=== PATIENT | female | born 1985 | race Caucasian/White ===

== ENCOUNTER → 2017-08-12 | Outpatient (REF) | payer OTHER ==
[2017-08-15 00:07] LABS: HPV HYBRID CAPTURE II Negative (Negative)
== END ==
LOC: M SFHCWAGY 15:58
DX: Z12.4 Encounter for screening for malignant neoplasm of cervix (principal)

== ENCOUNTER → 2018-11-03 | Outpatient (REF) | payer OTHER | LOC: M SFHCWAGY 16:04 | PROVIDERS: ATTEND Nurse Practitioner Family | DX: Z12.4 Encounter for screening for malignant neoplasm of cervix (principal) ==

== ENCOUNTER → 2019-06-21 | Outpatient (REF) | payer OTHER | LOC: M LAB REF 14:45 | PROVIDERS: ATTEND Physician Assistant | DX: J02.9 Acute pharyngitis, unspecified (principal) ==

== ENCOUNTER → 2020-05-09 | Outpatient (CLI) | payer OTHER | LOC: M WUC 13:54 | PROVIDERS: ATTEND Nurse Practitioner Family | DX: J30.1 Allergic rhinitis due to pollen (principal); J30.81 Allergic rhinitis due to animal (cat) (dog) hair and dander ==

== ENCOUNTER → 2020-11-14 | Outpatient (REF) | payer OTHER | LOC: M SFHCWAGY 18:58 | PROVIDERS: ATTEND Nurse Practitioner Women's Health | DX: Z12.4 Encounter for screening for malignant neoplasm of cervix (principal) ==

== ENCOUNTER → 2022-03-03 | Outpatient (REF) | payer OTHER | LOC: M SFHCWAGY 10:27 | PROVIDERS: ATTEND Obstetrics & Gynecology | DX: Z12.4 Encounter for screening for malignant neoplasm of cervix (principal) | CPT/HCPCS: 87624; G0123 ==

== ENCOUNTER → 2022-05-23 | Outpatient (CLI) | payer OTHER ==
[2022-05-23 16:51] LABS: COMPLEMENT C3 112.5 MG/DL (84.0-160.0); COMPLEMENT C4 16.6 MG/DL (12-36); IMMUNOGLOBULIN M 96.1 MG/DL (50-300)
[2022-05-23 16:54] LABS: IMMUNOGLOBULIN E 382.7 IU/ML (0-378)
== END ==
LOC: M WUC 11:56
PROVIDERS: ATTEND Nurse Practitioner Family
DX: J30.1 Allergic rhinitis due to pollen (principal); J30.81 Allergic rhinitis due to animal (cat) (dog) hair and dander; J30.89 Other allergic rhinitis; H10.45 Other chronic allergic conjunctivitis; J45.20 Mild intermittent asthma, uncomplicated

== ENCOUNTER → 2023-04-29 | Outpatient (REF) | payer OTHER | LOC: M SFHCWAGY 13:17 | PROVIDERS: ATTEND Obstetrics & Gynecology | DX: Z12.4 Encounter for screening for malignant neoplasm of cervix (principal) | CPT/HCPCS: 87624; G0123 ==

== ENCOUNTER → 2024-05-10 | Outpatient (REF) | payer OTHER | LOC: M SFHCWAGY 15:07 | PROVIDERS: ATTEND Obstetrics & Gynecology | DX: Z01.419 Encounter for gynecological examination (general) (routine) without abnormal findings (principal) | CPT/HCPCS: 87624; G0123 ==

== ENCOUNTER → 2024-06-17 | Outpatient (CLI) | payer OTHER ==
[2024-06-17 14:35] LABS: COMPLEMENT C3 133.1 MG/DL (84.0-160.0)
[2024-06-17 14:36] LABS: IMMUNOGLOBULIN A 220.3 MG/DL (40-350); IMMUNOGLOBULIN M 94.4 MG/DL (50-300)
[2024-06-17 14:39] LABS: IMMUNOGLOBULIN E 485.9 IU/ML (0-378)
[2024-06-20 10:28] LABS: ALPHA 1 ANTITRYPSIN 160 mg/dL (83-199)
[2024-06-20 15:27] LABS: ALMOND IGE FOOD < 0.10 kU/L (<0.10); BERMUDA GRASS IGE < 0.10 kU/L (<0.10); BIRCH IGE < 0.10 kU/L (<0.10); CODFISH IGE FOOD < 0.10 kU/L (<0.10); COMMON RAGWEED SHORT IGE < 0.10 kU/L (<0.10); COWS MILK FOOD 0.13 kU/L (<0.10); D001 IGE D PTERONYSSINUS 1.38 kU/L (<0.10); D002-IGE D FARINAE 0.75 kU/L (<0.10); E003-IGE HORSE EPITHELIA/DAND 3.53 kU/L (<0.10); E004-IGE COW DANDER 1.31 kU/L (<0.10); EGG WHITE FOOD 0.3 kU/L (<0.10); ELM IGE 0.83 kU/L (<0.10); HAZELNUT IGE FOOD < 0.10 kU/L (<0.10); I006 IGE COCKROACH 0.19 kU/L (<0.10); IMMUNOGLOBULIN E FOR ALLERGENS 476 kU/L (<OR=114); M002 IGE CLADOSPORIUM HERBARU < 0.10 kU/L (<0.10); M003 IGE ASPERGILLUS FUMIGATU < 0.10 kU/L (<0.10); M006 IGE ALTERNIA ALTERNATA < 0.10 kU/L (<0.10); M1-PENICILLIUM NOTATUM < 0.10 kU/L (<0.10); MUGWORT IGE < 0.10 kU/L (<0.10); OAK IGE 0.12 kU/L (<0.10); PEANUT IGE FOOD 0.14 kU/L (<0.10); ROUGH PIGWEED IGE < 0.10 kU/L (<0.10); SALMON IGE FOOD < 0.10 kU/L (<0.10); SCALLOP IGE FOOD < 0.10 kU/L (<0.10); SESAME SEED IGE FOOD 0.12 kU/L (<0.10); SHEEP SORREL IGE < 0.10 kU/L (<0.10); SHRIMP IGE FOOD < 0.10 kU/L (<0.10); SOYBEAN IGE FOOD 0.17 kU/L (<0.10); SYCAMORE IGE 0.14 kU/L (<0.10); T001-IGE MAPLE BOX ELDER 0.15 kU/L (<0.10); T006-IGE MOUNTAIN CEDAR < 0.10 kU/L (<0.10); TIMOTHY GRASS IGE 0.21 kU/L (<0.10); TUNA IGE FOOD < 0.10 kU/L (<0.10); WALNUT IGE FOOD 0.26 kU/L (<0.10); WALNUT TREE IGE 0.15 kU/L (<0.10); WHITE ASH IGE < 0.10 kU/L (<0.10); WHITE MULBERRY IGE < 0.10 kU/L (<0.10)
[2024-06-21 02:52] LABS: E094-IgE Fel d 1 1.08 kU/L (<0.10); E101-IgE Can f 1 3.56 kU/L (<0.10); E102-IgE Can f 2 1.43 kU/L (<0.10); E226 IgE Can f 5 0.44 kU/L (<0.10); E228-IgE Fel d 4 3.26 kU/L (<0.10); E229 IGE CAN F 4 0.84 kU/L (<0.10); E230 IGE CAN F 6 2.56 kU/L (<0.10); E231 IGE FEL D 7 9.66 kU/L (<0.10)
== END ==
LOC: M WUC 11:12
PROVIDERS: ATTEND Nurse Practitioner Family
DX: H10.45 Other chronic allergic conjunctivitis (principal); J45.20 Mild intermittent asthma, uncomplicated; L20.9 Atopic dermatitis, unspecified; R05.9 Cough, unspecified